=== PATIENT | male | born 1965 | race Caucasian/White ===

== ENCOUNTER 2020-10-06 14:24 | Outpatient (CLI) | payer BC, SELFPAY | END 2020-10-06 14:25 | disposition home or self-care (01) | LOC: ANHCOVIDVC 14:24 | PROVIDERS: PCP Internal Medicine | DX: Z23 Encounter for immunization (principal) | CPT/HCPCS: 0001A; 91300 ==

== ENCOUNTER 2020-10-27 14:25 | Outpatient (CLI) | payer BC, SELFPAY | END 2020-10-27 14:26 | disposition home or self-care (01) | LOC: ANHCOVIDVC 14:26 | PROVIDERS: PCP Internal Medicine | DX: Z23 Encounter for immunization (principal) | CPT/HCPCS: 0002A; 91300 ==